=== PATIENT | female | born 1975 | race Caucasian/White ===

== ENCOUNTER 2021-01-21 13:34 | Emergency (ER) | payer OTHER ==
[2021-01-21 14:58] LABS: HEMOGLOBIN 14.3 gm/dl (12.3-15.3); RED BLOOD COUNT 4.41 M/UL (4.00-5.10)
[2021-01-21 15:17] LABS: BUN/CREATININE RATIO 13 (0-10)
[2021-01-21] MEDS ORDERED: ROBAXIN 750 MG750 MG PO (16:40)
[2021-01-21] MEDS ORDERED: MOBIC15 MG PO (16:40)
== END 2021-01-21 17:00 | disposition home or self-care (01) ==
LOC: ER1 13:34
PROVIDERS: Nurse Practitioner
DX: M54.6 Pain in thoracic spine (principal); I10 Essential (primary) hypertension; F17.210 Nicotine dependence, cigarettes, uncomplicated; Z88.5 Allergy status to narcotic agent
CPT/HCPCS: 72128; 80053; 81001; 85025; 96372; 99284; J1885